=== PATIENT | male | born 1980 | race Caucasian/White ===

== ENCOUNTER 2022-01-31 20:52 | Emergency (ER) | payer SELFPAY ==
[2022-01-31 21:04] VITALS: BP 141/89; PULSE 97; RESP 18; TEMP 37.1; O2SAT 99; BMI 25.0
--- NOTE | 2022-01-31 21:17 | W.ED.ABDPA2 ---
HPI - Abdominal Pain General: Chief Complaint: Abdominal Pain Stated Complaint: pain in L abd side Time Seen by Provider: 01/31/22 20:53 Source: patient Mode of arrival: ambulatory Limitations: no limitations History of Present Illness: Patient is a 41-year-old male who presents to ED today with a complaint of right-sided abdominal pains. Patient states he has had intermittent sharp twinges of abdominal pains to his right lateral abdomen over the past 3 to 4 weeks but nothing that was severe or persistent. Patient states earlier today he began having pain to the same area that was fairly uncomfortable and had one episode of vomiting. He has not had any changes to bowel movements. He has not had any fevers. No urinary complaints. He did feel like pain worsened when he tried to eat something. No previous abdominal surgeries. Denies significant PMH. Does not take any medications. MD elicited complaint: abdominal pain Pertinent past history: none Pain Consistency: intermittent Location: Other (R mid/lateral abdomen) Radiation: none Migration to: no migration Exacerbating factors: eating Relieving factors: nothing Associated Symptoms: Reports nausea and vomiting; Denies change in bowel habits, chills, constipation, diarrhea, dysuria, fever(s) and hematemesis Review of Systems Const: Denies: fever(s), chills, body aches, fatigue or malaise Card: Denies: chest pain Resp: Denies: dyspnea GI: Reports: abdominal pain, nausea and vomiting; Denies: hematemesis, diarrhea, constipation or change in bowel habits : Denies: flank pain, difficulty urinating, dysuria, urinary frequency, urinary urgency or urinary hesitancy Musc: Denies: neck pain, back pain, extremity pain or joint pain Skin/Breast: Denies: rash Neuro: Denies: headache(s), numbness in extremities, weakness in extremities, sensory changes or dizziness Physical Exam Const: COMMON NORMALS: no acute distress, average body habitus, patient oriented x3, no limitations, healthy appearing, alert and well nourished GENERAL APPEARANCE: cooperative ORIENTATION/CONSCIOUSNESS: Yes awake, Yes oriented to person, Yes oriented to place and Yes oriented to time Chest: COMMONS NORMALS: normal inspection of the chest and normal palpation of entire chest wall Resp: COMMON NORMALS: normal respiratory effort and clear to auscultation bilaterally AUSCULTATION: clear to auscultation bilaterally Cardio: COMMON NORMALS: regular rate and regular rhythm RATE: regular rate RHYTHM: regular rhythm GI: COMMON NORMALS: Normal to inspection, nondistended, normoactive bowel sounds present, Soft to palpation, No hepatosplenomegaly present and no masses INSPECTION: Yes normal to inspection AUSCULTATION: Yes normoactive bowel sounds PALPATION: Yes Soft to palpation, Yes Tenderness to palpation present (GI) (mainly to R lateral abdomen) and Yes No hepatosplenomegaly present : COMMON NORMALS: Yes no CVA tenderness BLADDER/KIDNEY EXAM: Yes no CVA tenderness Back/Pelvis: COMMON NORMALS: no CVA tenderness Extremity: COMMON NORMALS: normal to inspection GENERAL: Yes normal exam except as noted Neuro: LENARD COMA SCALE: document GCS findings Lenard coma scale eye opening: Spontaneous Lenard coma scale verbal response: Orientated Lenard coma scale motor response: Obey commands Bearden coma scale total score: 15 COMMON NORMALS: patient oriented x3, moves all extremities, no focal motor deficits and no sensory deficits noted SENSORIUM/ORIENTATION: Yes alert, Yes oriented to person, Yes oriented to place and Yes oriented to time Skin: COMMON NORMALS: no rashes or lesions noted GENERAL SKIN EXAM: no rashes or lesions noted Course Vital Signs: Vital signs: Vital Signs Temperature 98.7 F 01/31/22 21:04 Pulse Rate 97 01/31/22 21:04 Respiratory Rate 16 01/31/22 22:25 Blood Pressure 141/89 01/31/22 21:04 Pulse Oximetry 99 01/31/22 22:25 MDM - Abdominal Pain Medical Decision Making Patient with discomfort to his right mid to lateral abdomen. Abdomen is nonsurgical at this time. Vital signs are stable. Blood work fairly unremarkable. Nonspecific elevations to his lipase at 106. He has no left upper quadrant or epigastric tenderness. UA is normal. At this point I do not feel like we need to proceed with emergent CT imaging. He has no localized tenderness to his RUQ. Recommend conservative treatment at home. Return to ED precautions given. Otherwise I would like him to follow-up with his PCP in a week or so if pain persists so they may further evaluate. Lab Data : 01/31/22 21:15 01/31/22 21:15 Labs/Radiology: Laboratory Results WBC 12.3 10^3/uL (4.0-10.0) H 01/31/22 21:15 RBC 5.51 10^6/uL (4.1-5.3) H 01/31/22 21:15 Hgb 16.4 g/dL (11.7-16.6) 01/31/22 21:15 Hct 47.9 % (42.0-52.0) 01/31/22 21:15 MCV 86.9 fl (80-94) 01/31/22 21:15 MCH 29.8 pg (28.0-34.0) 01/31/22 21:15 MCHC 34.2 g/dL (30.0-36.0) 01/31/22 21:15 RDW 13.0 % (12.1-15.1) 01/31/22 21:15 Plt Count 276 10^3/cmm (130-400) 01/31/22 21:15 MPV 9.2 fL (7.4-10.4) 01/31/22 21:15 Neut % (Auto) 46.0 % 01/31/22 21:15 Lymph % (Auto) 43.8 % 01/31/22 21:15 [place] % (Auto) 7.6 % 01/31/22 21:15 Eos % (Auto) 1.8 % 01/31/22 21:15 Baso % (Auto) 0.6 % 01/31/22 21:15 Neut # (Auto) 5.65 10^3/uL (1.8-7.7) 01/31/22 21:15 Lymph # (Auto) 5.4 10^3/uL (0.8-4.8) H 01/31/22 21:15 [place] # (Auto) 0.9 10^3/uL (0.2-0.9) 01/31/22 21:15 Eos # (Auto) 0.2 10^3/uL (0.0-0.8) 01/31/22 21:15 Baso # (Auto) 0.1 10^3/uL (0.0-0.1) 01/31/22 21:15 Nucleated RBC % (auto) 0 % 01/31/22 21:15 Nucleated RBCs # 0.0 /100WBC 01/31/22 21:15 Sodium 138 mmol/L (136-145) 01/31/22 21:15 Potassium 3.8 mmol/L (3.5-5.1) 01/31/22 21:15 Chloride 103 mmol/L (98-107) 01/31/22 21:15 Carbon Dioxide 25 mmol/L (22-29) 01/31/22 21:15 Anion Gap 13.8 (5-19) 01/31/22 21:15 BUN 15 mg/dL (6-20) 01/31/22 21:15 Creatinine 1.0 mg/dL (0.7-1.2) 01/31/22 21:15 GFR Calculation 83.2 mL/min (90-130) L 01/31/22 21:15 Glucose 113 mg/dL (65-115) 01/31/22 21:15 Calculated Osmolality 288 mOsm/kg (285-295) 01/31/22 21:15 Calcium 9.7 mg/dL (8.5-10.5) 01/31/22 21:15 Total Bilirubin 0.4 mg/dL (0.15-1.2) 01/31/22 21:15 AST 25 U/L (0-40) 01/31/22 21:15 ALT 36 U/L (0-41) 01/31/22 21:15 Alkaline Phosphatase 122 IU/L (40-130) 01/31/22 21:15 Total Protein 7.5 g/dL (6.6-8.7) 01/31/22 21:15 Albumin 5.0 g/dL (3.5-5.2) 01/31/22 21:15 Globulin 2.5 g/dL (1.3-4.6) 01/31/22 21:15 Lipase 106 U/L (13-60) H 01/31/22 21:15 Urine Color Yellow (Yellow) 01/31/22 22:00 Urine Appearance Clear (CLEAR) 01/31/22 22:00 Urine pH 6 (5-7) 01/31/22 22:00 Ur Specific [place] 1.025 (1.005-1.030) 01/31/22 22:00 Urine Protein Neg (Negative) 01/31/22 22:00 Urine Glucose (UA) Norm (Normal) 01/31/22 22:00 Urine Ketones Negative (Negative) 01/31/22 22:00 Urine Blood Neg (Negative) 01/31/22 22:00 Urine Nitrate Negative (Negative) 01/31/22 22:00 Urine Bilirubin Neg (Negative) 01/31/22 22:00 Urine Urobilinogen Norm mg/dL (Negative) 01/31/22 22:00 Ur Leukocyte Esterase Negative (Negative) 01/31/22 22:00 Discharge Plan Discharge Patient Disposition: Home Clinical Impression: Right-sided abdominal pain of unknown cause Condition: Stable Discharge Orders: Discharge ED (Routine); Ordered 01/31/22 Ordered By: Jessika Maloney Patient Instructions: Abdominal Pain (ED) Coding Level of Care Code ED [employer] for Chg Fwd Exam Comprehensive
[2022-01-31 21:20] LABS: Basophils # 0.1 10^3/uL (0.0-0.1); Basophils % 0.6 %; Eosinophils # 0.2 10^3/uL (0.0-0.8); Eosinophils % 1.8 %; Hematocrit 47.9 % (42.0-52.0); Hemoglobin 16.4 g/dL (11.7-16.6); Lymphocytes # 5.4 10^3/uL (0.8-4.8); Lymphocytes % 43.8 %; Mean Corpuscular HGB Conc 34.2 g/dL (30.0-36.0); Mean Corpuscular Hemoglobin 29.8 pg (28.0-34.0); Mean Corpuscular Volume 86.9 fl (80-94); Mean Platelet Volume 9.2 fL (7.4-10.4); Monocytes # 0.9 10^3/uL (0.2-0.9); Monocytes % 7.6 %; Neutrophils # 5.65 10^3/uL (1.8-7.7); Nucleated Red Blood Cells % 0 %; Platelet Count 276 10^3/cmm (130-400); Red Blood Count 5.51 10^6/uL (4.1-5.3); White Blood Count 12.3 10^3/uL (4.0-10.0)
[2022-01-31 21:43] LABS: Alanine Aminotransferase 36 U/L (0-41); Alkaline Phosphatase 122 IU/L (40-130); Anion Gap 13.8 (5-19); Aspartate Amino Transferase 25 U/L (0-40); Blood Urea Nitrogen 15 mg/dL (6-20); Calcium 9.7 mg/dL (8.5-10.5); Carbon Dioxide 25 mmol/L (22-29); Chloride 103 mmol/L (98-107); Globulin 2.5 g/dL (1.3-4.6); Glomerular Filtration Rate 83.2 mL/min (90-130); Glucose 113 mg/dL (65-115); Lipase 106 U/L (13-60); Osmolality Calculated 288 mOsm/kg (285-295); Potassium 3.8 mmol/L (3.5-5.1); Sodium 138 mmol/L (136-145); Total Bilirubin 0.4 mg/dL (0.15-1.2); Total Protein 7.5 g/dL (6.6-8.7)
[2022-01-31 22:04] LABS: Add Urine Microscopic? NO; Charge for UA Resulting for Rev
[2022-01-31 22:08] LABS: Bilirubin Urine Neg (Negative); Blood Urine Neg (Negative); Glucose Urine UA Norm (Normal); Ketones Urine Negative (Negative); Leukocyte Esterase Urine Negative (Negative); Nitrate Urine Negative (Negative); Protein Urine Neg (Negative); Specific Gravity, Urine 1.025 (1.005-1.030); Urine Appearance Clear (CLEAR); Urine Color Yellow (Yellow); Urobilinogen Urine Norm (Negative); pH Urine 6 (5-7)
[2022-01-31 22:25] VITALS: RESP 16; O2SAT 99
== END 2022-01-31 22:26 | disposition home or self-care (01) ==
PROVIDERS: Emergency Provider Physician Assistant
DX: R10.9 Unspecified abdominal pain (principal)
CPT/HCPCS: 80053; 81003; 83690; 85025; 99282

== ENCOUNTER → 2024-05-30 08:05 | Outpatient (BNVA) | payer OTHER, SELFPAY | PROVIDERS: PCP Family Medicine; Visit Provider Specialist | DX: M25.561 Pain in right knee (principal) | CPT/HCPCS: 73562 ==